=== PATIENT | male | born 1965 | race Two or more races ===

== ENCOUNTER 2020-07-30 02:00 | Emergency (ER) | payer OTHER ==
[~2020-07-30] VITALS: Ht 188 cm; Wt 102.1 kg
--- NOTE | 2020-07-30 02:14 | NUR ---
PATIENT CAME TO ER BED 11 C/O RIGTH LEG CELLULITIS. PATIENT STATES THAT HE HAS CHRONIC CELLULITIS. PATIENT STATES THAT HE DOES NOT TAKE ANY ANTIBIOTICS. PATIENT HAS A LEFT LEG PROSTHETIC. PATIENT IS AAOX4. NO SOB. BREAHTING EVENLY AND UNLABORED ON ROOM AIR. AMBULATORY WITH A STEADY GAIT. Addendum: 07/30/20 at 0223 by IRVING PATIENT HAS REDNESS AND WAMRTH ON THE RIGHT THIGH. DENIES DRUG USE.
[2020-07-30 02:54] LABS: BASOPHILS % (AUTO) 0.6 % (0.0-2.0); EOSINOPHILS % (AUTO) 7.1 % (0.0-6.0); HEMATOCRIT 42 % (39-51); HEMOGLOBIN 13.9 g/dL (13.5-17.5); LYMPHOCYTES # (AUTO) 1.6 /CMM (0.8-4.8); LYMPHOCYTES % (AUTO) 38.5 % (20.0-44.0); MEAN CORPUSCULAR HGB CONC 33 g/dl (31.0-36.0); MEAN CORPUSCULAR VOLUME 93 fL (80-96); MONOCYTES # (AUTO) 0.6 /CMM (0.1-1.30); MONOCYTES % (AUTO) 13.5 % (2.0-12.0); NEUTROPHILS # (AUTO) 1.7 /CMM (1.8-8.9); NEUTROPHILS % (AUTO) 40.3 % (43.0-81.0); PLATELET COUNT (AUTO) 238 /CMM (150-450); WHITE BLOOD COUNT (AUTO) 4.2 K/uL (4.3-11.0)
[2020-07-30 03:01] LABS: CALCIUM, SERUM 8.8 mg/dL (8.5-10.1); CREATININE 0.9 mg/dL (0.6-1.3); POTASSIUM 3.7 mmol/L (3.5-5.1)
[2020-07-30 03:07] LABS: ALBUMIN 2.6 g/dL (3.4-5.0); BILIRUBIN,DIRECT 0.2 mg/dL (0.0-0.2); BILIRUBIN,TOTAL 0.5 mg/dL (0.2-1.0); TOTAL PROTEIN, SERUM 8.4 g/dL (6.4-8.2)
[2020-07-30] MEDS ORDERED: CHLORDIAZEPOXIDE HCL 25 MG CAPSULE ONE (03:15)
[2020-07-30] MEDS ORDERED: CEPHALEXIN MONOHYDRATE 500 MG CAPSULE PO ONE ×2 (03:16→03:30)
[2020-07-30] MEDS ORDERED: CHLORDIAZEPOXIDE HCL 25 MG CAPSULE PO ONE (03:30)
--- NOTE | 2020-07-30 03:35 | NUR ---
Patient discharged to home in stable condition. Written and verbal after care instructions given. Patient verbalizes understanding of instruction.
[2020-07-30 03:40] VITALS: BP 137/87
[2020-08-02] MEDS ORDERED: MIRT-121 PO (14:45)
[2020-08-02] MEDS ORDERED: LEVO500T90 PO (14:45)
== END 2020-07-30 03:41 | disposition home or self-care (01) ==
LOC: ER 02:01
DX: L03.115 Cellulitis of right lower limb (principal); I89.0 Lymphedema, not elsewhere classified; F10.10 Alcohol abuse, uncomplicated; I10 Essential (primary) hypertension; F32.9 Major depressive disorder, single episode, unspecified; F43.10 Post-traumatic stress disorder, unspecified; F17.200 Nicotine dependence, unspecified, uncomplicated; Z59.0 Homelessness; Z89.512 Acquired absence of left leg below knee; Y90.5 Blood alcohol level of 100-119 mg/100 ml
CPT/HCPCS: 36415; 80048-TC; 80076-TC; 85025-TC; G0480

== ENCOUNTER 2020-07-30 15:18 | Inpatient (IN) | payer OTHER ==
[~2020-07-30] VITALS: Ht 188 cm; Wt 102.1 kg
--- NOTE | 2020-07-30 15:18 | NUR ---
PT BIB SELF C/O SI "I WANT TO OD ON PILLS" PT IS AAOX4, NOT IN RESPIRATORY DISTRESS, V/S STABLE, KEPT RESTED AND COMFORTABLE. SITTER AT BEDSIDE. WILL CONTINUE TO MONITOR.
--- NOTE | 2020-07-30 15:30 | NUR ---
URINAL GIVEN BUT UNABLE TO PROVIDE URINE SPECIMEN THIS TIME.
--- NOTE | 2020-07-30 15:34 | NUR ---
SECURITY AT BEDSIDE FOR WANDING.
--- NOTE | 2020-07-30 15:35 | NUR ---
SEEN AND EXAMINED BY .
--- NOTE | 2020-07-30 16:13 | NUR ---
COVID SPECIMEN OBTAINED AND SENT TO LAB.
--- NOTE | 2020-07-30 16:15 | NUR ---
PT STILL UNABLE TO PROVIDE URINE SPECIMEN.
--- NOTE | 2020-07-30 16:41 | NUR ---
[facility] [place] [facility] [phone] X 2 AND FAX NUMBER IS: [phone]
--- NOTE | 2020-07-30 16:55 | NUR ---
This SW met with the patient at bedside. Patient is alert and oriented x4. Patient is a 55-year-old male. Patient was discharged from [facility] ED on 07/30/2020 in the supervisor shipping as patients initial presenting problem was leg pain. Patient was discharged and then checked in to the ED again with suicidal ideation. Patient reported that he is originally from [facility], but has been living in [place] for the last few years. Patient stated that he is currently homeless with no friends or family in [place]. Patient reported that he currently receives $1,206 in social security disability. Patient stated that he drinks 5-7 pints of vodka a day. Patient reported that he smokes marijuana 2x a week. Patient reported that he smokes half a pack of cigarettes a day. Patient reported a mental health diagnosis of Major Depression Disorder and Post-Traumatic Stress Disorder. Patient reports this diagnosis from the year 1989. Patient reported that he does not see a psychiatrist or therapist and has not been able to follow up to receive a prescription for psychiatric medications. Patient stated he could not remember his last psychiatric hospitalization, but patient reported it was in [facility] during a trip. Patient reported suicidal ideation to overdose on over the counter medications if he were to leave [facility] facility. Patient denied auditory and visual hallucinations. Patient denies homicidal ideation. Patient and SW discussed voluntary psychiatric hospitalization and patient was in agreement of this plan. Patient remained calm and cooperative during assessment. Patients thought process was clear and linear. Patient had a flat affect. Patients speech was loud and slurred at times. Plan: ED to refer this patient to [facility] when medically cleared for psychiatric hospitalization. ED to call [facility] Intake call center and fax clinicals to .
[2020-07-30 17:35] LABS: ACETAMINOPHEN < 2 ug/ml (10-30); ALCOHOL, BLOOD < 3 mg/dL (0-0)
--- NOTE | 2020-07-30 17:40 | NUR ---
COVID NEGATIVE RESULT
[2020-07-30 17:43] LABS: BILIRUBIN,URINE Negative (NEGATIVE); BLOOD, URINE Large Ery/uL (NEGATIVE); COLOR,URINE Yellow (YELLOW); LEUKOCYTE ESTERASE ,URINE Negative (NEGATIVE); NITRITE, URINE Negative (NEGATIVE); PH,URINE 8.5 (5.0-8.0); PROTEIN,URINE >=300 mg/dl (NEGATIVE); UGLUCOSE Negative (NEGATIVE)
[2020-07-30 18:01] LABS: BACTERIA,URINE Few /HPF (None Seen); RBC,URINE 51-80 /HPF (0-2); SQUAMOUS EPITHELIAL CELL,UR Rare /HPF (None Seen)
--- NOTE | 2020-07-30 20:04 | NUR ---
ACCEPTED UNIT 2 DEEPIKA IZAGUIRRE
--- NOTE | 2020-07-30 20:25 | NUR ---
[facility] ETA [id number]
--- NOTE | 2020-07-30 20:36 | NUR ---
ATTEMPTED TO GIVE REPORT AT [facility]. PER CARLOS JARAMILLO UNIT 2 UNABLE TO ACCEPT PATIENT WITH WALKER
[2020-07-30] MEDS ORDERED: ACETAMINOPHEN 325 MG TABLET ONE (20:41)
--- NOTE | 2020-07-30 20:41 | NUR ---
SPOKE WITH MAGDALENA FROM [facility], CANCELLED AMBULANCE RESERVATION
--- NOTE | 2020-07-30 20:47 | NUR ---
PT SAT 86% ON ROOM AIR. PLACED ON 4L NC SAT 94%
--- NOTE | 2020-07-30 20:58 | NUR ---
EMT AT BEDSIDE FOR EKG
[2020-07-30 20:59] LABS: BASOPHILS # (AUTO) 0.2 /CMM (0.0-0.2); EOSINOPHILS % (AUTO) 0.4 % (0.0-6.0); HEMATOCRIT 43 % (39-51); HEMOGLOBIN 14.2 g/dL (13.5-17.5); LYMPHOCYTES # (AUTO) 0.8 /CMM (0.8-4.8); MEAN CORPUSCULAR HGB CONC 33 g/dl (31.0-36.0); MEAN CORPUSCULAR VOLUME 93 fL (80-96); MONOCYTES # (AUTO) 0.8 /CMM (0.1-1.30); MONOCYTES % (AUTO) 10.9 % (2.0-12.0); NEUTROPHILS # (AUTO) 5.3 /CMM (1.8-8.9); NEUTROPHILS % (AUTO) 74.7 % (43.0-81.0); PLATELET COUNT (AUTO) 236 /CMM (150-450); RED BLOOD CELL COUNT(AUTO) 4.62 MIL/uL (4.5-6.0); WHITE BLOOD COUNT (AUTO) 7.1 K/uL (4.3-11.0)
[2020-07-30] MEDS ORDERED: VANCOMYCIN 1 GM VIAL ONE (20:59)
[2020-07-30] MEDS ORDERED: PIPERACILLIN /TAZOBACTAM 3.375 G VIAL IV ONE (20:59)
[2020-07-30] MEDS ORDERED: ACETAMINOPHEN 325 MG TABLET PO ONE (21:00)
[2020-07-30] MEDS ORDERED: VANCOMYCIN 1 GM in IV D5W 250 ML IV ONE (21:00)
[2020-07-30] MEDS ORDERED: PIPERACILLIN /TAZOBACTAM 3.375 G in IV D5W 50 ML IV ONE (21:00)
[2020-07-30 21:04] LABS: CALCIUM, SERUM 8.7 mg/dL (8.5-10.1); CARBON DIOXIDE 26 mmol/L (21-32); CHLORIDE 103 mmol/L (98-107); CREATININE 0.7 mg/dL (0.6-1.3); GLUCOSE 129 mg/dL (74-106); POTASSIUM 3.3 mmol/L (3.5-5.1); SODIUM SERUM 138 mmol/L (136-145); UREA NITROGEN, BLOOD 9 mg/dL (7-18)
[2020-07-30 21:09] LABS: ALANINE AMINOTRANSFERASE 50 U/L (12-78); ALBUMIN 2.6 g/dL (3.4-5.0); ALKALINE PHOSPHATASE 164 U/L (46-116); ASPARTATE AMINOTRANSFERASE 86 U/L (15-37); BILIRUBIN,DIRECT 0.3 mg/dL (0.0-0.2); BILIRUBIN,TOTAL 0.8 mg/dL (0.2-1.0); TOTAL PROTEIN, SERUM 8.7 g/dL (6.4-8.2)
--- NOTE | 2020-07-30 21:16 | NUR ---
FLUIDS INITIATED, PT REMAINS TACHY AT 113.
[2020-07-30] MEDS ORDERED: IV NS 0.9% 1,000 ML IV ONE (21:30)
[2020-07-30] MEDS ORDERED: ACETAMINOPHEN 325 MG TABLET PO PRN (22:00)
[2020-07-30] MEDS ORDERED: MORPHINE SULFATE INJ 2 MG/ML DISP.SYRIN IV PRN (22:00)
[2020-07-30] MEDS ORDERED: POTASSIUM CHLORIDE 20 MEQ TAB.PRT.SR PO ONE (22:00)
[2020-07-30] MEDS ORDERED: HYDROCODONE/APAP 5/325MG TABLET PO PRN (22:00)
[2020-07-30] MEDS ORDERED: Z GUARD REMEDY 2 OZ OINT TP PRN (22:00)
[2020-07-30] MEDS ORDERED: MAGNESIUM HYDROXIDE 30 ML UDC PO PRN (22:00)
[2020-07-30] MEDS ORDERED: ONDANSETRON HCL/PF 4 MG/2 ML VIAL IVP PRN (22:00)
[2020-07-30] MEDS ORDERED: MAG HYDROX/AL HYDROX/SIMETH 30 ML UDC PO PRN (22:00)
--- NOTE | 2020-07-30 22:16 | NUR ---
PT REMAINS ON 4L NC. SAT 94%.
--- NOTE | 2020-07-30 22:26 | NUR ---
REPORT GIVEN TO AMEYA GONZALEZ FOR KENRICK
--- NOTE | 2020-07-30 22:30 | NUR ---
PT TRANSFERED PER [facility]
[2020-07-30 22:45] VITALS: BP 175/87
--- NOTE | 2020-07-30 22:45 | NUR ---
TELE/RN OPENING NOTES PATIENT TRANSPORTED FROM ED WITH PROCESS ANALYST AND RN ANISH. PATIENT SUSTAINED NO INJURIES DURING TRANSPORT. PATIENT IN BED WITH ASSIST. PATIENT IS ALERT AND ORIENTED X 2-3, LETHARGIC, AROUSE TO DEEP PAIN. PATIENT IS ON 4L OF OXYGEN N/C TOLERATING WELL. BREATHING IS EVEN AND UNLABORED. NO SIGNS OF RESPIRATORY DISTRESS OR SOB NOTED. PATIENT REFUSED FULL BODY SKIN ASSESSMENT, REFUSED PHOTO OF BODY. PATIENT IS LEFT BKA, HAS PROSTHETIC LEG. PATIENT DID NOT SIGN BELONGINGS LIST AT THIS TIME. IV ACCESS ON LEFT AC #20G. PATIENT HAS STATED THOUGHTS OF HURTING SELF, WITH PLAN TO HARM SELF. PATIENT IS BEING OBSERVED Q15 MIN. SAFETY MEASURES ARE IN PLACE, BED IS LOCKED AND PLACED IN THE LOW POSITION, SIDE RAILS UP X 2, BED ALARM ON. CALL LIGHT IS WITHIN REACH. WILL CONTINUE TO MONITOR.
[2020-07-31] MEDS: IV 1/2NS 1000 ML 1,000 ML IV PRN ×2 (00:02→20:35)
[2020-07-31] MEDS ORDERED: PIPERACILLIN /TAZOBACTAM 3.375 G VIAL IV ONE ×2 (01:16→04:50)
[2020-07-31] MEDS: PIPERACILLIN /TAZOBACTAM 3.375 G in IV D5W 50 ML IV SCH ×4 (01:17→17:54)
[2020-07-31 04:00] VITALS: BP 141/90
--- NOTE | 2020-07-31 06:55 | NUR ---
TELE/RN CLOSING NOTES PATIENT IS ALERT AND ORIENTED X 2-3, AROUSE TO DEEP PAIN. PATIENT IS ON 4L OF OXYGEN N/C TOLERATING WELL. BREATHING IS EVEN AND UNLABORED. TELE READING SR 89. NO SIGNS OF RESPIRATORY DISTRESS OR SOB NOTED. PATIENT IS LEFT BKA, HAS PROSTHETIC LEG. IV ACCESS ON LEFT AC #20G RUNNING NS AT 75 ML/HR. PATIENT HAS STATED THOUGHTS OF HURTING SELF, WITH PLAN TO HARM SELF WITH PILLS. PATIENT IS BEING OBSERVED Q15 MIN. PATIENT SUSTAINED NO INJURIES DURING SHIFT. ALL NEEDS HAVE BEEN MET. SAFETY MEASURES ARE IN PLACE, BED IS LOCKED AND PLACED IN THE LOW POSITION, SIDE RAILS UP X 2, BED ALARM ON. CALL LIGHT IS WITHIN REACH. WILL ENDORSE TO DAY SHIFT.
--- NOTE | 2020-07-31 07:30 | NUR ---
RECEIVED PT. THIS AM ALERT AND ORIENTED X1-2.DEPRESSED.IV INFUSING.
[2020-07-31 08:00] VITALS: BP 147/77
--- NOTE | 2020-07-31 08:00 | NUR ---
PSYCH FLOOR CONTACTED REGARDING NEED FOR PSYCH EVAL. ON PT.BUNDLE TIER ON PSYCH STATES HE WILL INFORM DR. VALENTINO.
--- NOTE | 2020-07-31 09:25 | NUR ---
WOUND CARE CONSULT: PT PRESENTS WITH REDNESS TO RT LOWER LEG, PRESENT ON ADMISSION. PT IS INDEPENDENT WITH BED MOBILITY AND IS CONTINENT AT THIS TIME. WILL SEE PRN. CURRENT NITIN SCORE IS 18.
[2020-07-31] MEDS: VANCOMYCIN 1 GM in IV D5W 250ml IV SCH ×2 (09:27→20:35)
[2020-07-31] MEDS: ENOXAPARIN SODIUM 40 MG/0.4 ML DISP.SYRIN SQ SCH (09:50)
[2020-07-31 11:01] LABS: BASOPHILS # (AUTO) 0.1 /CMM (0.0-0.2); BASOPHILS % (AUTO) 1.1 % (0.0-2.0); EOSINOPHILS % (AUTO) 2.1 % (0.0-6.0); HEMATOCRIT 38 % (39-51); HEMOGLOBIN 12.6 g/dL (13.5-17.5); LYMPHOCYTES # (AUTO) 0.9 /CMM (0.8-4.8); LYMPHOCYTES % (AUTO) 15.8 % (20.0-44.0); MEAN CORPUSCULAR HGB CONC 33 g/dl (31.0-36.0); MEAN CORPUSCULAR VOLUME 92 fL (80-96); MONOCYTES # (AUTO) 0.7 /CMM (0.1-1.30); MONOCYTES % (AUTO) 11.9 % (2.0-12.0); NEUTROPHILS # (AUTO) 3.8 /CMM (1.8-8.9); NEUTROPHILS % (AUTO) 69.1 % (43.0-81.0); PLATELET COUNT (AUTO) 164 /CMM (150-450); RED BLOOD CELL COUNT(AUTO) 4.13 MIL/uL (4.5-6.0); WHITE BLOOD COUNT (AUTO) 5.5 K/uL (4.3-11.0)
[2020-07-31 11:19] LABS: BILIRUBIN,TOTAL 0.9 mg/dL (0.2-1.0); CALCIUM, SERUM 7.7 mg/dL (8.5-10.1); CREATININE 0.9 mg/dL (0.6-1.3); MAGNESIUM 1.4 mg/dL (1.8-2.4); PHOSPHORUS 2.3 mg/dL (2.5-4.9); TOTAL PROTEIN, SERUM 6.8 g/dL (6.4-8.2)
[2020-07-31 11:41] LABS: THYROID STIMULATING HORMONE 0.209 uIU/mL (0.358-3.74)
[2020-07-31] MEDS ORDERED: NEUTRA PHOS 1 POWD.PACKET PO ONE (12:30)
--- NOTE | 2020-07-31 13:30 | NUR ---
texted dr. kam ambriz at lunch time. Addendum: 07/31/20 at 1405 by SHELLI WATT RN above info incorrect.
[2020-07-31] MEDS: Magnesium 1GM/D5W 100ML PREMIX 100 ML IV SCH ×4 (13:51→18:51)
--- NOTE | 2020-07-31 14:13 | NUR ---
social service and psych consult ordered.
--- NOTE | 2020-07-31 14:14 | NUR ---
unable to obtain home meds from pt.states he does not remember.
--- NOTE | 2020-07-31 14:15 | NUR ---
refusing pneumonia and flu vaccines.
[2020-07-31] MEDS ORDERED: POTASSIUM CHLORIDE 20 MEQ TAB.PRT.SR PO ONE (15:30)
[2020-07-31 16:00] VITALS: BP 134/67
--- NOTE | 2020-07-31 18:00 | NUR ---
HAD ABN. PHOS LAB WELL POTASSIUM AND MG. REPLACEMENTS DONE.
--- NOTE | 2020-07-31 19:20 | NUR ---
POLICE OFFICER OPENING NOTE REPORT RECIEVED FORM SHELLI GONZALEZ. PATIENT IS ALERT AND ORIENTED X 2-3, AROUSE TO TOUCH. PATIENT IS ON RA BREATHING EVEN AND UNLABORED DENIES SOB.TELE MONITORING IN PLACE. PATIENT HAS LEFT BKA, HAS PROSTHETIC LEG. IV ACCESS ON LEFT AC #20G INFUSING IVF ORDERED. PATIENT STILL HAS SOME SI STATES I JUST WANT TO DRINK AND TAKE PILLS AND NOT WAKE UP. SITTER PHYLLIS ENRIQUEZ AT BEDSIDE. SAFETY MEASURES ARE IN PLACE, BED IS LOCKED AND PLACED IN THE LOW POSITION, SIDE RAILS UP X 2, BED ALARM ON. CALL LIGHT IN REACH. WILL CONT TO MONITOR. Addendum: 07/31/20 at 2236 by MAGDALENO PACHECO RN PT NOT ON TELE MONITORING MED SURGE PT. ERROR IN DOCUMENTATION.
[2020-07-31 20:00] VITALS: BP 125/75
--- NOTE | 2020-07-31 21:20 | NUR ---
DR. CHAMBERS CONSULT PSYCH; PT STILL HAS SI OF KILLING HIMSELF. dr. chambers called for consult updated on patient condition. performed face time with patient. states he is going to place patient on anti depressant also advises to not discharge patient once medically stable if patient still voices SI/HI BUT THERE IS NO NEED FOR LEGAL HOLD PT WILLING TO HAVE TREATMENT PERFORMED, LOW ELOPEMENT RISK. pt still expressing desire to kill himself and has been thinking of ways to do it. will cont to monitor. subha hatch at bedside to monitor observe.
[2020-07-31] MEDS: MIRTAZAPINE 15 MG TABLET PO SCH (22:12)
[2020-08-01] MEDS: PIPERACILLIN /TAZOBACTAM 3.375 G in IV D5W 50 ML IV SCH ×5 (00:43→23:52)
[2020-08-01 04:00] VITALS: BP 108/76
--- NOTE | 2020-08-01 06:28 | NUR ---
RN CLOSING NOTE PATIENT IS ALERT AND ORIENTED X 2 REORIENTED TO TIME, AROUSEABLE TO TOUCH AND VOICE. PATIENT IS ON RA BREATHING EVEN AND UNLABORED PATIENT HAS LEFT BKA, HAS PROSTHETIC LEG. IV ACCESS ON LEFT AC #20G INFUSING IVF ORDERED. ANTIBIOTICS PATIENT STILL HAS SITTER 1:1 PHYLLIS STUDENT RECRUITER AT BEDSIDE WITH PT STILL EXPRESSING SI DURING SHIFT. SAFETY MEASURES ARE IN PLACE, BED IS LOCKED AND PLACED IN THE LOW POSITION, SIDE RAILS UP X 2, BED ALARM ON. CALL LIGHT IN REACH. WILL CONT TO MONITOR AND ENDORSE TO ONCOMING SHIFT. .
--- NOTE | 2020-08-01 06:30 | NUR ---
pt refused am labs. states" its too early. " dental laboratory assistant asked to come back after breakfast to try again.
--- NOTE | 2020-08-01 07:50 | NUR ---
RN Opening Note Received patient in bed, AO x 2, able to responds all stimuli, does no appears pain or discomfort, no s/s of adverse reaction from ATB. Respiratory even and unlabored on room air O2sat 94%, no distress or SOB observed. Skin is warm to touch keep clean/dry intact IV site on left AC g 20 running 1/2 NS. Kept locked bed with elevated HOB for ensure airway and aspiration precaution and lowest position for safety. Call light within reach, will continue to monitor.
[2020-08-01 08:00] VITALS: BP 144/77
[2020-08-01] MEDS: ENOXAPARIN SODIUM 40 MG/0.4 ML DISP.SYRIN SQ SCH (08:40)
[2020-08-01] MEDS: VANCOMYCIN 1 GM in IV D5W 250ml IV SCH ×2 (08:40→21:18)
[2020-08-01 11:33] LABS: CALCIUM, SERUM 8.1 mg/dL (8.5-10.1); CREATININE 1.4 mg/dL (0.6-1.3); MAGNESIUM 2.2 mg/dL (1.8-2.4); PHOSPHORUS 3.1 mg/dL (2.5-4.9); POTASSIUM 3.1 mmol/L (3.5-5.1)
[2020-08-01] MEDS: IV 1/2NS 1000 ML 1,000 ML IV PRN (12:44)
[2020-08-01 16:00] VITALS: BP 144/78
--- NOTE | 2020-08-01 16:09 | NUR ---
SW attempted to follow-up with the patient. Patient was asleep and unarousable by verbal cues and physical touch. Patient to attempt to meet with the patient again to discuss discharge plan. Addendum: 08/01/20 at 1616 by ELIF MAYS Correction: SW to attempt to meet with the patient again to discuss discharge plan.
--- NOTE | 2020-08-01 18:32 | NUR ---
RN Closing note Patient in bed resting, zdoes no apprearse pain or distress, skin is warm to touch keep clean/dry, intact IV site on left AC g 20 running NS at 75ml/hr. Respiratory even and unlabored on room air O2sat 97%, no sob or distress observed. Also no SI observed during dayshift. Kept locked bed and elevated HOB for ensure airway and aspiration precaution, and lowest position for safety. Call light within reach, will endorse shift lab technician.
[2020-08-01 19:28] VITALS: BP 146/67
--- NOTE | 2020-08-01 19:35 | NUR ---
MS RN NOTES RECEIVED ON BED SLEEPING,AROUSABLE TO VERBAL STIMULI.DENIES SUICIDAL THOUGHT,SITTER AT BEDSIDE FOR SAFETY.MED COMPLIANT.NOTED LEFT BKA,A/O X1-2,HOMELESS.IVF 1/2 NS AT 75ML/HR RATE,SITE PATENT LEFT AC #20.WILL CONTINUE TO MONITOR BEHAVIOR.
[2020-08-01 20:00] VITALS: BP 146/67
[2020-08-01] MEDS ORDERED: POTASSIUM CHLORIDE 20 MEQ TAB.PRT.SR PO ONE (20:00)
--- NOTE | 2020-08-01 20:17 | NUR ---
MS RN NOTES POTASSIUM LEVEL 3.1,REPLACE WITH K-DUR 40MEQ ORALLY ORDERED.
--- NOTE | 2020-08-01 21:00 | NUR ---
MS RN NOTES VANCOMYCIN TROUGH 8L,DOSE ADMINISTERED PER LEVEL PROTOCOL.
[2020-08-01] MEDS: MIRTAZAPINE 15 MG TABLET PO SCH (21:21)
--- NOTE | 2020-08-01 21:30 | NUR ---
MS RN NOTES REMERON 7/5MG PO GIVEN.
[2020-08-02] MEDS: IV 1/2NS 1000 ML 1,000 ML IV PRN (04:59)
[2020-08-02] MEDS: PIPERACILLIN /TAZOBACTAM 3.375 G in IV D5W 50 ML IV SCH ×3 (05:25→18:26)
--- NOTE | 2020-08-02 06:27 | NUR ---
MS RN NOTES CALM AND QUIET THRU OUT SHIFT,MED COMPLIANT,ALL DUE IV ABX ADMINISTERED,DENIES SUICIDAL IDEATION.SITTER AT BEDSIDE.IN NO ACUTE DISTRESS.WILL ENDORSE TO DAY NURSE FOR KENRICK.
[2020-08-02 07:11] LABS: CALCIUM, SERUM 8.6 mg/dL (8.5-10.1); CREATININE 1.2 mg/dL (0.6-1.3); POTASSIUM 3.3 mmol/L (3.5-5.1)
--- NOTE | 2020-08-02 07:45 | NUR ---
Patient is awake a/o x2. Breathing unlabored on 4L NC at this time. No complain of pain or other discomfort. IV fluid is running as ordered. Noted with L BKA and RLE cellulitic.Sitter at bed side for safety purpose. Patient denies SI/HI at this time. Will continue to monitor and continue with plan of care
[2020-08-02 07:52] VITALS: BP 154/70
[2020-08-02 07:54] VITALS: BP 154/70
[2020-08-02] MEDS: VANCOMYCIN 1.25 GM in IV D5W 250 ML IV SCH ×2 (08:55→21:01)
[2020-08-02] MEDS: ENOXAPARIN SODIUM 40 MG/0.4 ML DISP.SYRIN SQ SCH (08:57)
[2020-08-02] MEDS ORDERED: POTASSIUM CHLORIDE 20 MEQ TAB.PRT.SR PO SCH (10:00)
--- NOTE | 2020-08-02 14:00 | NUR ---
Patient cleared for d/c to [facility] by . All d/c paperwork prepared , education provided. Patient verbalized understanding. Patient refused d/c pictures taken .
[2020-08-02] MEDS ORDERED: LEVO500T90 PO (14:45)
[2020-08-02] MEDS ORDERED: MIRT-121 PO (14:45)
[2020-08-02 15:50] VITALS: BP 156/76
--- NOTE | 2020-08-02 18:45 | NUR ---
Report called to [facility]. They expect patient around 2000 pm. No room number given.
--- NOTE | 2020-08-02 19:40 | NUR ---
MS RN NOTES MS RN NOTES RECEIVED ON BED A/O X3,MED COMPLIANT,LEFT BKA,SLIGHT REDNESS ON RIGHT LOWER LEG NOTED, HOMELESS,FOR DISCHARGE TO [facility],AWAITNG TO BE SMALL BATTERY PLATE ASSEMBLER BY AMBULANCE.SITTER AT BEDSIDE FOR SAFETY,PATIENT ON SUICIDAL PRECAUTION.WILL CONTINUE TO MONITOR BEHAVIOR.
--- NOTE | 2020-08-02 19:55 | NUR ---
supervisor frame sample and pattern time 2030pm
--- NOTE | 2020-08-02 20:40 | NUR ---
MS RN NOTES [facility] CAME TO [employer] [facility] [facility]ER PATIENT FOR D/S TO [facility],APPARENTLY BLOOD PRESSURE ON THE HIGH SIDE AT 179/83,PULSE-64.PATIENT IN PAIN.MEDICATED WITH NORCO 5/325MG,1 TAB PO ORDERED FOR MODERATE PAIN 5/10 ON PAIN SCALE.WILL MONITOR .
[2020-08-02 22:00] VITALS: BP 160/71
--- NOTE | 2020-08-02 22:00 | NUR ---
MS RN NOTES BLOOD PRESSURE RECHECK 179/76,PULSE 66.CHARGE NURSE MADE AWARE
--- NOTE | 2020-08-02 22:15 | NUR ---
MS RN NOTES EPIC WAS PAGE AWAITING TO CALL BACK
[2020-08-02] MEDS: MIRTAZAPINE 15 MG TABLET PO SCH (22:20)
--- NOTE | 2020-08-02 22:45 | NUR ---
MS RN NOTES NO ANSWER,PAGE AGAIN AT THIS TIME
--- NOTE | 2020-08-02 23:05 | NUR ---
MS RN NOTES DR BIRCH CALLED BACK,MADE AWARE ON THE BLOOD PRESSURE,WITH ORDER TO CHECK BLOOD PRESSURE MANUALLY,IF SBP ABOVE 160,MAY GIVE HYDRALZINE 25MG PO X 1 DOSE,NOTED AND CARRIED OUT.
--- NOTE | 2020-08-02 23:15 | NUR ---
MS RN NOTES BLOOD PRESSURE RECHECK 170/66,WILL ADMINISTER HYDRALAZINE 25MG PO ORDERED,AWAITING TO BE VERIFIED BY PHARMACIST.
[2020-08-02] MEDS ORDERED: hydrALAZINE HCL 25 MG TABLET PO ONE (23:30)
[2020-08-02 23:32] VITALS: BP 170/66
[2020-08-03] MEDS: PIPERACILLIN /TAZOBACTAM 3.375 G in IV D5W 50 ML IV SCH (01:21)
--- NOTE | 2020-08-03 01:30 | NUR ---
MS RN NOTES LATEST BP 109/53,PULSE 69,CHARGE NURSE MADE AWARE.[facility] MADE AWARE OF DISCHARGE,REPORT GIVEN TO YAIMA.
--- NOTE | 2020-08-03 01:58 | NUR ---
MS RN NOTES [facility] CALLED FOR TRANSPORT,ETA [phone]
--- NOTE | 2020-08-03 04:10 | NUR ---
MS RN NOTES PATIENT GOT MARINE EQUIPMENT SALES ENGINEER BY [facility] TRANSPORT TO [facility] , IN STABLE CONDITION
== END 2020-08-03 04:10 | DRG 812 ==
LOC: ER 15:22 → MED 21:59 → TELE 22:55 → MED 07-31 08:21
PROVIDERS: ADMIT Nurse Practitioner Acute Care; ATTEND Student in an Organized Health Care Education/Training Program
DX: T42.4X1A Poisoning by benzodiazepines, accidental (unintentional), initial encounter (principal); T40.7X1A Poisoning by cannabis (derivatives), accidental (unintentional), initial encounter; J15.9 Unspecified bacterial pneumonia; L03.115 Cellulitis of right lower limb; G92 Toxic encephalopathy; R45.851 Suicidal ideations; E43 Unspecified severe protein-calorie malnutrition; E83.42 Hypomagnesemia; E87.6 Hypokalemia; R73.9 Hyperglycemia, unspecified; I10 Essential (primary) hypertension; E83.39 Other disorders of phosphorus metabolism; E83.51 Hypocalcemia; F17.210 Nicotine dependence, cigarettes, uncomplicated; F33.2 Major depressive disorder, recurrent severe without psychotic features; F43.10 Post-traumatic stress disorder, unspecified; Z59.0 Homelessness; E44.0 Moderate protein-calorie malnutrition; E88.09 Other disorders of plasma-protein metabolism, not elsewhere classified; Z89.512 Acquired absence of left leg below knee; D68.69 Other thrombophilia; Z68.28 Body mass index [BMI] 28.0-28.9, adult; Y92.89 Other specified places as the place of occurrence of the external cause
CPT/HCPCS: 36415; 71045-TC; 80048-TC; 80053-TC; 80061-TC; 80076-TC; 80202-TC; 81001; 82962-TC; 83605-TC; 83735-TC; 84100-TC; 84443-TC; 84484-TC; 85025-TC; 85730-TC; 87040-TC; 87081-TC; 87086-TC; 97112-TC; 97116-TC; 97530-TC; C9803; G0378; G0480; J1650; J2270; J2543; J3370; J3475; J3490; J7030; J7060